=== PATIENT | female | born 1965 | race Caucasian/White ===

== ENCOUNTER 2025-05-08 09:45 | Outpatient (CLI) | payer MEDICAID, SELFPAY ==
--- NOTE | 2025-05-08 10:00 | RT.EKG_ITS ---
APPROVED REPORT Exam: Resting ECG Reason for Exam: MOnitor QT while adjusting medications Patient Location: O HR:91 bpm ECG Measurements Heart Rate 91 AXIS ME 146 P 59 QRSd 91 QRS 1 QT 435 T 55 QTc 536 Conclusion Sinus rhythm...normal P axis, V-rate 50- 99 Borderline T abnormalities, anterior leads...T flat or neg, V2-V4 Prolonged QT interval...QTc >500mS
== END 2025-05-08 09:46 | disposition home or self-care (01) ==
PROVIDERS: PCP Student in an Organized Health Care Education/Training Program; Visit Provider Family Medicine
DX: I45.81 Long QT syndrome (principal); Z79.891 Long term (current) use of opiate analgesic; G89.3 Neoplasm related pain (acute) (chronic)
CPT/HCPCS: 93005; 93010